=== PATIENT | male | born 1995 | race Caucasian/White ===

== ENCOUNTER 2016-12-01 23:56 | Emergency (ER) | payer OTHER ==
[~2016-12-01] VITALS: Ht 175.3 cm; Wt 88.8 kg
[2016-12-02 00:53] LABS: HEMATOCRIT 48.4 % (38.0-50.0); MCH 30.7 PG (29.0-34.0); MCV 85.4 FL (86-99); MEAN PLAT.VOLUME 10.4 uM^3 (9.0-12.4); PLATELET COUNT 334 K/uL (156-360); RBC DIS.WIDTH-CV 12.3 % (11.8-14.6); RBC DIS.WIDTH-SD 38.2 % (39-53); RED BLOOD COUNT 5.67 M/uL (4.00-5.50)
[2016-12-02 01:13] LABS: CHLORIDE 102 mEq/L (99-109); POTASSIUM 4.6 mEq/L (3.7-5.4); SODIUM 140 mEq/L (136-147)
[2016-12-02 01:15] LABS: GLUCOSE 108 mg/dL (70-99)
[2016-12-02 01:16] LABS: ANION GAP 11 MEQ/L (2-14)
[2016-12-02 01:17] LABS: TOTAL BILIRUBIN 0.7 mg/dL (0.0-1.0)
[2016-12-02 01:19] LABS: ALKALINE PHOSPHATASE 70 IU/L (3-129); GFR ESTIMATE (CALCULATED) > 59 mL/min/
[2016-12-02 01:20] LABS: UREA NITROGEN (BUN) 11 mg/dL (9-23)
[2016-12-02] MEDS ORDERED: COLACE100 MG PO (02:50)
[2016-12-02] MEDS ORDERED: BENTYL10 MG PO (02:50)
[2016-12-02 03:10] LABS: ADD MIUA? YES; BILIRUBIN NEGATIVE; BLOOD NEGATIVE; COLOR YELLOW ((YELLOW)); GLUCOSE (STRIP) NEGATIVE; KETONES 5; LEUKOCYTES NEGATIVE; NITRITE NEGATIVE; PROTEIN (STRIP) 30; SPECIFIC GRAVITY 1.033 (1.000-1.030); UROBILINOGEN 0.2 MG/DL (0.2-1.0)
[2016-12-02 03:15] LABS: BACTERIA NONE SEEN /HPF; EPITHELIAL CELLS RARE /HPF; HYALINE CASTS 0-5 /LPF; MUCUS 4+ /LPF; UCUL ADDED? NO; WHITE BLOOD CELLS 0-5 /HPF (0-5)
[2016-12-02 03:18] LABS: LIPASE 14 U/L (1.0-51.0)
[2016-12-02 03:41] VITALS: BP 150/58
== END 2016-12-02 03:58 | disposition home or self-care (01) ==
LOC: EME 23:56
DX: R10.9 Unspecified abdominal pain (principal)
CPT/HCPCS: 80053; 81003; 83690; 85027; 99281; 99284; J1885